=== PATIENT | male | born 1965 | race Caucasian/White ===

== ENCOUNTER 2021-01-19 12:39 | Emergency (ER) | payer SELFPAY ==
[~2021-01-19] VITALS: Ht 180.3 cm; Wt 94.3 kg
[2021-01-19] MEDS ORDERED: methylPREDNISolone SOD SUCC 125 MG/2 ML VL IV ONE (13:00)
[2021-01-19] MEDS ORDERED: cefTRIAXone 1GM/50ML D5W 50 ML IV ONE (13:00)
[2021-01-19 13:26] LABS: Basophils # (auto) 0.3 10 ^3/uL (0-0.2); Basophils % (auto) 2.6 % (0.0-2.0); Eosinophils # (auto) 0.3 10 ^3/uL (0-0.8); Eosinophils % (auto) 3.1 % (0.0-7.0); Hematocrit 43.1 % (41.0-53.0); Lymphocytes # (auto) 3.1 10 ^3/uL (0.4-5.4); Lymphocytes % (auto) 31.4 % (10.0-50.0); Mean Corpuscular Hemoglobin 30.9 pg (28.0-32.0); Mean Corpuscular Hgb Conc. 34.8 g/dL (32.0-36.0); Mean Corpuscular Volume 88.8 fL (80.0-100.0); Monocytes # (auto) 0.4 10 ^3/uL (0-1.3); Monocytes % (auto) 4.6 % (0.0-12.0); Neutrophils # (auto) 5.7 10 ^3/uL (1.6-8.6); Neutrophils % (auto) 58.3 % (37.0-80.0); Red Blood Cells 4.86 10^6/uL (4.5-5.90); Red Cell Distribution Width 14.1 % (11.8-14.3); White Blood Cell 9.8 10^3/uL (4.4-10.8)
[2021-01-19 13:43] LABS: Albumin 3.9 g/dL (3.4-5.0); Calcium 8.6 mg/dL (8.5-10.1); Potassium 4.4 mmol/L (3.5-5.1)
[2021-01-19 13:46] LABS: Bilirubin, Total 0.4 mg/dL (0.2-1.0); Total Protein 7.5 g/dL (6.4-8.2)
[2021-01-19 15:18] LABS: Urine Bacteria NONE SEEN /hpf (None Seen); Urine Blood Negative /uL (Negative); Urine Specific Gravity 1.019 (1.001-1.035); Urine WBC 1 /hpf (0 - 3)
[2021-01-19] MEDS ORDERED: amLODIPine BESYLATE 5 MG TAB PO ONE (15:30)
[2021-01-19 16:42] VITALS: BP 169/93
== END 2021-01-19 16:54 | disposition home or self-care (01) ==
LOC: ER 12:39
DX: J18.9 Pneumonia, unspecified organism (principal); I10 Essential (primary) hypertension; J45.909 Unspecified asthma, uncomplicated; F17.210 Nicotine dependence, cigarettes, uncomplicated; F10.20 Alcohol dependence, uncomplicated; Y90.9 Presence of alcohol in blood, level not specified
CPT/HCPCS: 36415; 71045; 80053; 81001; 85025; 85049; 96365; 96375; 99285; J0696; J2930; 93005

== ENCOUNTER 2022-07-24 12:14 | Inpatient (IN) | payer MEDICAID ==
[~2022-07-24] VITALS: Ht 180.3 cm; Wt 82.0 kg
[2022-07-24 12:22] VITALS: BP 147/94
[2022-07-24] MEDS ORDERED: MORPHINE SULFATE 4 MG/ML SYR/VIAL IV ONE (12:30)
[2022-07-24] MEDS ORDERED: SODIUM CHLORIDE 0.9% 1,000 ML IVB ONE (12:30)
[2022-07-24] MEDS ORDERED: ONDANSETRON HCL 4 MG/2 ML VIAL IV ONE (12:30)
[2022-07-24 13:01] LABS: Basophils # (auto) 0.1 10 ^3/uL (0-0.2); Basophils % (auto) 0.7 % (0.0-2.0); Eosinophils # (auto) 0.1 10 ^3/uL (0-0.8); Eosinophils % (auto) 0.5 % (0.0-7.0); Hematocrit 47.2 % (41.0-53.0); Hemoglobin 15.9 g/dL (13.5-17.5); Mean Corpuscular Hemoglobin 30.8 pg (28.0-32.0); Mean Corpuscular Hgb Conc. 33.7 g/dL (32.0-36.0); Mean Corpuscular Volume 91.4 fL (80.0-100.0); Monocytes # (auto) 0.6 10 ^3/uL (0-1.3); Monocytes % (auto) 4.4 % (0.0-12.0); Neutrophils # (auto) 10.7 10 ^3/uL (1.6-8.6); Neutrophils % (auto) 79.4 % (37.0-80.0); Nucleated Red Blood Cells % 0.2 %; Red Blood Cells 5.16 10^6/uL (4.5-5.90); White Blood Cell 13.5 10^3/uL (4.4-10.8)
[2022-07-24 13:18] LABS: Albumin 3.6 g/dL (3.4-5.0); Calcium 8.7 mg/dL (8.5-10.1); Magnesium 2.2 mg/dL (1.6-2.6); Potassium 3.8 mmol/L (3.5-5.1)
[2022-07-24 13:23] LABS: BUN/Creatinine Ratio 16.8; Bilirubin, Total 1.6 mg/dL (0.2-1.0); Total Protein 7.1 g/dL (6.4-8.2)
[2022-07-24] MEDS ORDERED: metroNIDAZOLE 500MG/100ML 100 ML IV ONE (13:45)
[2022-07-24 13:56] LABS: Urine Bacteria NONE SEEN /hpf (None Seen); Urine Blood Negative /uL (Negative); Urine Mucus FEW (None Seen); Urine WBC 33 /hpf (0 - 3); Urine WBC Clumps PRESENT /hpf (None Seen)
[2022-07-24] MEDS ORDERED: LOS25T PO (14:08)
[2022-07-24] MEDS ORDERED: CARV3.1240 PO (14:08)
[2022-07-24] MEDS ORDERED: HYDROcodone-ACET 5/325MG TAB PO PRN (14:15)
[2022-07-24] MEDS ORDERED: MORPHINE SULFATE INJ 2 MG/ml SYRG IV PRN ×2 (14:15)
[2022-07-24] MEDS ORDERED: metroNIDAZOLE 500 MG TAB PO SCH (14:15)
[2022-07-24] MEDS ORDERED: ACETAMINOPHEN 325 MG TAB PO PRN (14:15)
[2022-07-24] MEDS ORDERED: SODIUM CHLORIDE 0.9% 1,000 ML IV ONE (14:15)
[2022-07-24] MEDS ORDERED: NITROGLYCERIN 0.4 MG SL TAB SL PRN (14:15)
[2022-07-24 15:55] LABS: Alcohol, Urine < 3.0 mg/dL (0-10); Amphetamine Screen, Urine POSITIVE (NEGATIVE); Barbiturate Scree,Urine NEGATIVE (NEGATIVE); Benzodiazephine Screen, Urine NEGATIVE (NEGATIVE); Cannabinoid Screen, Urine POSITIVE (NEGATIVE); Cocaine Screen, Urine NEGATIVE (NEGATIVE); Opiate Scree,Urine NEGATIVE (NEGATIVE); Phencyclidine Screen, Urine NEGATIVE (NEGATIVE)
[2022-07-24] MEDS ORDERED: CARVEDILOL 3.125 MG TAB PO SCH (22:00)
[2022-07-25] MEDS ORDERED: PANTOPRAZOLE 40 MG/10 ML VIAL INJ IV SCH (10:00)
[2022-07-25] MEDS ORDERED: LOSARTAN POTASSIUM 25 MG TAB PO SCH (10:00)
[2022-07-25] MEDS ORDERED: levoFLOXacin 500MG 100 ML IV SCH (10:00)
== END 2022-07-25 01:23 | disposition left against medical advice (07) | DRG 244 ==
LOC: ER 12:18 → OVERFLOW 14:05
PROVIDERS: ADMIT Nurse Practitioner; ATTEND Nurse Practitioner
DX: K57.32 Diverticulitis of large intestine without perforation or abscess without bleeding (principal); F17.210 Nicotine dependence, cigarettes, uncomplicated; I10 Essential (primary) hypertension; F19.10 Other psychoactive substance abuse, uncomplicated; J45.909 Unspecified asthma, uncomplicated; Z86.73 Personal history of transient ischemic attack (TIA), and cerebral infarction without residual deficits; Z53.29 Procedure and treatment not carried out because of patient's decision for other reasons
CPT/HCPCS: 36415; 74176; 80053; 80307; 81001; 83690; 83735; 85025; G0378

== ENCOUNTER 2022-11-15 03:26 | Inpatient (IN) | payer MEDICAID ==
[2022-11-15] VITALS (54 sets, daily range): BP systolic 112–167; BP diastolic 68–124
[~2022-11-15] VITALS: Ht 180.3 cm; Wt 78.2 kg
[~2022-11-15 03:26] MED LIST: CARV3.1240 PO; LOS25T PO
[2022-11-15] MEDS ORDERED: IOHEXOL 350 MG/ML 100ML IJ ONE (04:10)
[2022-11-15 04:24] LABS: INR 1.12 (0.9-1.15); Partial Thromboplastin Time 24.9 sec (24.6-33.4)
[2022-11-15 04:28] LABS: Albumin 3.3 g/dL (3.4-5.0); Calcium 8.5 mg/dL (8.5-10.1); Magnesium 2.2 mg/dL (1.6-2.6); Potassium 3.9 mmol/L (3.5-5.1)
[2022-11-15 04:30] LABS: BUN/Creatinine Ratio 20.1 (10.0-20.0)
[2022-11-15 04:33] LABS: Bilirubin, Total 1.6 mg/dL (0.2-1.0); Total Protein 6.9 g/dL (6.4-8.2)
[2022-11-15 04:36] LABS: Basophils # (auto) 0.1 10 ^3/uL (0-0.2); Eosinophils # (auto) 0.1 10 ^3/uL (0-0.8); Hematocrit 42.5 % (41.0-53.0); Hemoglobin 14.4 g/dL (13.5-17.5); Lymphocytes # (auto) 1.1 10 ^3/uL (0.4-5.4); Lymphocytes % (auto) 11.8 % (10.0-50.0); Mean Corpuscular Hemoglobin 31.9 pg (28.0-32.0); Mean Corpuscular Hgb Conc. 33.9 g/dL (32.0-36.0); Mean Corpuscular Volume 94.1 fL (80.0-100.0); Monocytes # (auto) 0.3 10 ^3/uL (0-1.3); Monocytes % (auto) 3.4 % (0.0-12.0); Neutrophils # (auto) 7.4 10 ^3/uL (1.6-8.6); Neutrophils % (auto) 82.8 % (37.0-80.0); Nucleated Red Blood Cells % 0.2 %; Red Blood Cells 4.51 10^6/uL (4.5-5.90); Red Cell Distribution Width 16.3 % (11.8-14.3)
[2022-11-15] MEDS ORDERED: LORazepam 2MG/ML-1ML VIAL IV ONE ×2 (06:00→06:45)
[2022-11-15] MEDS ORDERED: ASPirin 81 mg TAB PO ONE ×2 (06:00→08:45)
[2022-11-15] MEDS ORDERED: FUROSEMIDE 40 MG/4 ML VIAL IV ONE (06:00)
[2022-11-15] MEDS ORDERED: LORazepam 2MG/ML-1ML VIAL ONE (06:44)
[2022-11-15] MEDS ORDERED: ETOMIDATE (2MG/ML) 20ML VIAL IV ONE ×2 (07:28→07:45)
[2022-11-15] MEDS ORDERED: SUCCINYLCHOLINE CHLORIDE 20 MG/ML 10ML VIAL IV ONE ×2 (07:28→07:45)
[2022-11-15] MEDS ORDERED: MIDAZOLAM DRIP 50 mg/50mL 50 ML IV ONE (07:29)
[2022-11-15] MEDS ORDERED: fentaNYL Drip 2500mCg/250mlNS 250 ML IV ONE (07:40)
[2022-11-15] MEDS: fentaNYL Drip 2500mCg/250mlNS 250 ML IV SCH (07:45)
[2022-11-15] MEDS ORDERED: MORPHINE SULFATE INJ 2 MG/ml SYRG IV PRN (08:45)
[2022-11-15] MEDS ORDERED: NITROGLYCERIN 0.4 MG SL TAB SL PRN (08:45)
[2022-11-15] MEDS ORDERED: hydrALAZINE HCL 20 MG/ML VL IV PRN (08:45)
[2022-11-15] MEDS ORDERED: ALBUTEROL SULF 2.5 MG/0.5ML(0.5%) NEB SOLN NEB PRN (09:30)
[2022-11-15] MEDS: MIDAZOLAM DRIP 50 mg/50mL 50 ML IV SCH ×4 (09:31→21:50)
[2022-11-15 09:43] LABS: Blood Alcohol < 3.0 mg/dL (0-5); Cholesterol 129 mg/dL (< 200); HDL Cholesterol 37 mg/dL (40-59); LDL Cholesterol 88 mg/dL (< 100); Triglycerides 58 mg/dL (< 150)
[2022-11-15] MEDS ORDERED: NITROGLYCERIN 0.4MG/HR TOPICAL PATCH TD ONE (09:45)
[2022-11-15] MEDS ORDERED: DEXTROSE (50%) 50ML SYRG IV PRN (09:45)
[2022-11-15] MEDS ORDERED: IPRATROPIUM BROM 0.5 MG/2.5ML INH SOL NEB SCH (10:00)
[2022-11-15] MEDS: CARVEDILOL 3.125 MG TAB PO SCH ×2 (10:00→22:47)
[2022-11-15 10:32] LABS: Amylase 60 U/L (25-115); Lipase 72 U/L (73-393)
[2022-11-15 11:37] LABS: Albumin 3.1 g/dL (3.4-5.0); Calcium 8.3 mg/dL (8.5-10.1); Potassium 4.4 mmol/L (3.5-5.1)
[2022-11-15 11:40] LABS: Urine Bacteria NONE SEEN /hpf (None Seen); Urine Blood TRACE /uL (Negative); Urine Specific Gravity 1.014 (1.001-1.035); Urine WBC 3 /hpf (0 - 3)
[2022-11-15 11:41] LABS: BUN/Creatinine Ratio 19.9 (10.0-20.0); Bilirubin, Total 1.9 mg/dL (0.2-1.0); Total Protein 5.9 g/dL (6.4-8.2)
[2022-11-15] MEDS: PANTOPRAZOLE 40 MG/10 ML VIAL INJ IV SCH (11:44)
[2022-11-15] MEDS: POTASSIUM EFFERVESENT TAB 25 MEQ NG SCH (11:45)
[2022-11-15] MEDS: ENOXAPARIN SOD 80 MG/0.8ML SYRINGE SC SCH ×2 (11:45→22:46)
[2022-11-15] MEDS: InsuLIN REG 1unit/0.01ml Soln (100units/ml) SC SCH ×3 (12:00→23:48)
[2022-11-15 12:05] LABS: Alcohol, Urine < 3.0 mg/dL (0-10); Amphetamine Screen, Urine POSITIVE (NEGATIVE); Barbiturate Scree,Urine NEGATIVE (NEGATIVE); Benzodiazephine Screen, Urine POSITIVE (NEGATIVE); Cannabinoid Screen, Urine POSITIVE (NEGATIVE); Cocaine Screen, Urine NEGATIVE (NEGATIVE); Opiate Scree,Urine NEGATIVE (NEGATIVE); Phencyclidine Screen, Urine NEGATIVE (NEGATIVE)
[2022-11-15] MEDS: ACCU-CHEK COMFORT CURVE STRIP VI SCH ×3 (14:10→23:48)
[2022-11-15] MEDS: FUROSEMIDE 40 MG/4 ML VIAL IV SCH (17:46)
[2022-11-15] MEDS: ALBUTEROL SULF 2.5 MG/0.5ML(0.5%) NEB SOLN NEB SCH (18:19)
[2022-11-15] MEDS: IPRATROPIUM BROM 0.5 MG/2.5ML INH SOL NEB SCH (18:19)
[2022-11-15] MEDS ORDERED: ATOR-47 (19:42)
[2022-11-15] MEDS ORDERED: CLOP75TA70 PO (19:42)
[2022-11-15 23:36] LABS: BUN/Creatinine Ratio 16.9 (10.0-20.0); Calcium 9.1 mg/dL (8.5-10.1); Magnesium 1.9 mg/dL (1.6-2.6); Potassium 3.6 mmol/L (3.5-5.1)
[2022-11-16] VITALS (105 sets, daily range): BP systolic 113–168; BP diastolic 76–114
[2022-11-16] MEDS: IPRATROPIUM BROM 0.5 MG/2.5ML INH SOL NEB SCH ×5 (00:14→23:30)
[2022-11-16] MEDS: ALBUTEROL SULF 2.5 MG/0.5ML(0.5%) NEB SOLN NEB SCH ×5 (00:14→23:30)
[2022-11-16] MEDS: MIDAZOLAM DRIP 50 mg/50mL 50 ML IV SCH ×4 (00:44→12:03)
[2022-11-16] MEDS: ACETAMINOPHEN 650 mg PER 20.3 mL UD PO PRN (01:56)
[2022-11-16] MEDS: fentaNYL Drip 2500mCg/250mlNS 250 ML IV SCH (03:44)
[2022-11-16 04:01] LABS: Urine Bacteria FEW /hpf (None Seen); Urine Blood 1+ /uL (Negative); Urine Hyaline Cast FEW /lpf (0 - 2); Urine Specific Gravity 1.013 (1.001-1.035); Urine WBC 2 /hpf (0 - 3)
[2022-11-16 04:41] LABS: Basophils # (auto) 0.1 10 ^3/uL (0-0.2); Eosinophils # (auto) 0.1 10 ^3/uL (0-0.8); Eosinophils % (auto) 0.4 % (0.0-7.0); Hematocrit 47.3 % (41.0-53.0); Hemoglobin 15.7 g/dL (13.5-17.5); Lymphocytes # (auto) 0.6 10 ^3/uL (0.4-5.4); Lymphocytes % (auto) 5.6 % (10.0-50.0); Mean Corpuscular Hemoglobin 31.1 pg (28.0-32.0); Mean Corpuscular Hgb Conc. 33.1 g/dL (32.0-36.0); Monocytes # (auto) 0.7 10 ^3/uL (0-1.3); Monocytes % (auto) 6.3 % (0.0-12.0); Neutrophils # (auto) 9.8 10 ^3/uL (1.6-8.6); Neutrophils % (auto) 86.7 % (37.0-80.0); Nucleated Red Blood Cells % 0.1 %; Red Blood Cells 5.03 10^6/uL (4.5-5.90); Red Cell Distribution Width 16.3 % (11.8-14.3); White Blood Cell 11.3 10^3/uL (4.4-10.8)
[2022-11-16 04:57] LABS: Albumin 3.1 g/dL (3.4-5.0); BUN/Creatinine Ratio 14.1 (10.0-20.0); Calcium 8.9 mg/dL (8.5-10.1); Potassium 3.8 mmol/L (3.5-5.1)
[2022-11-16 05:00] LABS: Bilirubin, Total 2.4 mg/dL (0.2-1.0); Total Protein 6.5 g/dL (6.4-8.2)
[2022-11-16] MEDS: InsuLIN REG 1unit/0.01ml Soln (100units/ml) SC SCH ×3 (06:00→18:00)
[2022-11-16] MEDS: ACCU-CHEK COMFORT CURVE STRIP VI SCH ×3 (06:20→18:00)
[2022-11-16] MEDS: FUROSEMIDE 40 MG/4 ML VIAL IV SCH (06:28)
[2022-11-16] MEDS ORDERED: ACETYLCYSTEINE ORAL for CIN 20%(200MG/ML) 4ML PO SCH (10:00)
[2022-11-16] MEDS ORDERED: ACETYLCYSTEINE 20%(200MG/ML) SOLN 30ML PO SCH (10:00)
[2022-11-16] MEDS: THIAMINE 100mg/ml INJ (200mg/2ml VIAL) IV SCH (10:44)
[2022-11-16] MEDS: ENOXAPARIN SOD 80 MG/0.8ML SYRINGE SC SCH ×2 (10:44→21:39)
[2022-11-16] MEDS: ASPirin 81 mg TAB PO SCH (10:45)
[2022-11-16] MEDS: PANTOPRAZOLE 40 MG/10 ML VIAL INJ IV SCH (10:45)
[2022-11-16] MEDS: POTASSIUM EFFERVESENT TAB 25 MEQ NG SCH (10:45)
[2022-11-16] MEDS: CARVEDILOL 3.125 MG TAB PO SCH ×2 (10:46→21:39)
[2022-11-16] MEDS: FOLIC ACID 1 MG in D5W 5% 50 ML INJ SCH (12:15)
[2022-11-16] MEDS ORDERED: ALBUMIN 25% 50 ML IV ONE (14:15)
[2022-11-16] MEDS: ACETYLCYSTEINE 20%(200MG/ML) SOLN 30ML PO SCH (21:40)
[2022-11-17] VITALS (104 sets, daily range): BP systolic 109–169; BP diastolic 64–116
[2022-11-17] MEDS: ACCU-CHEK COMFORT CURVE STRIP VI SCH ×5 (00:24→23:31)
[2022-11-17 04:57] LABS: Basophils # (auto) 0 10 ^3/uL (0-0.2); Basophils % (auto) 0.3 % (0.0-2.0); Eosinophils # (auto) 0 10 ^3/uL (0-0.8); Eosinophils % (auto) 0.1 % (0.0-7.0); Hematocrit 48.9 % (41.0-53.0); Hemoglobin 16.3 g/dL (13.5-17.5); Lymphocytes # (auto) 0.7 10 ^3/uL (0.4-5.4); Lymphocytes % (auto) 5.3 % (10.0-50.0); Mean Corpuscular Hgb Conc. 33.3 g/dL (32.0-36.0); Mean Corpuscular Volume 93.2 fL (80.0-100.0); Monocytes % (auto) 7.2 % (0.0-12.0); Neutrophils % (auto) 87.1 % (37.0-80.0); Nucleated Red Blood Cells % 0.3 %; Red Blood Cells 5.24 10^6/uL (4.5-5.90); Red Cell Distribution Width 16.2 % (11.8-14.3); White Blood Cell 13.8 10^3/uL (4.4-10.8)
[2022-11-17 05:20] LABS: Albumin 2.8 g/dL (3.4-5.0); BUN/Creatinine Ratio 26.5 (10.0-20.0)
[2022-11-17 05:23] LABS: Bilirubin, Total 2.3 mg/dL (0.2-1.0); Total Protein 6.5 g/dL (6.4-8.2)
[2022-11-17] MEDS: InsuLIN REG 1unit/0.01ml Soln (100units/ml) SC SCH ×5 (06:00→23:31)
[2022-11-17] MEDS: IPRATROPIUM BROM 0.5 MG/2.5ML INH SOL NEB SCH ×4 (06:11→23:10)
[2022-11-17] MEDS: ALBUTEROL SULF 2.5 MG/0.5ML(0.5%) NEB SOLN NEB SCH ×4 (06:11→23:10)
[2022-11-17] MEDS: fentaNYL Drip 2500mCg/250mlNS 250 ML IV SCH (07:45)
[2022-11-17] MEDS: ASPirin 81 mg TAB PO SCH (10:00)
[2022-11-17] MEDS: ENOXAPARIN SOD 80 MG/0.8ML SYRINGE SC SCH ×2 (10:00→21:55)
[2022-11-17] MEDS ORDERED: cefTRIAXone 1GM/50ML D5W 50 ML IV ONE (10:30)
[2022-11-17] MEDS: PANTOPRAZOLE 40 MG/10 ML VIAL INJ IV SCH (11:18)
[2022-11-17] MEDS: FUROSEMIDE 40 MG/4 ML VIAL IV SCH (11:19)
[2022-11-17] MEDS: THIAMINE 100mg/ml INJ (200mg/2ml VIAL) IV SCH (11:19)
[2022-11-17] MEDS: CARVEDILOL 3.125 MG TAB PO SCH ×2 (11:22→21:55)
[2022-11-17] MEDS: ACETYLCYSTEINE 20%(200MG/ML) SOLN 30ML PO SCH ×2 (11:23→22:07)
[2022-11-17] MEDS: POTASSIUM EFFERVESENT TAB 25 MEQ NG SCH (11:23)
[2022-11-17] MEDS: FOLIC ACID 1 MG in D5W 5% 50 ML INJ SCH (12:00)
[2022-11-17] MEDS: LACTULOSE 20Gm/30ML SOLN PO SCH (21:55)
[2022-11-18] VITALS (106 sets, daily range): BP systolic 119–174; BP diastolic 71–98
[2022-11-18] MEDS: fentaNYL Drip 2500mCg/250mlNS 250 ML IV SCH (01:04)
[2022-11-18 05:10] LABS: Basophils # (auto) 0 10 ^3/uL (0-0.2); Basophils % (auto) 0.6 % (0.0-2.0); Eosinophils # (auto) 0.1 10 ^3/uL (0-0.8); Eosinophils % (auto) 1.1 % (0.0-7.0); Hematocrit 26.5 % (41.0-53.0); Hemoglobin 8.8 g/dL (13.5-17.5); Lymphocytes # (auto) 1.1 10 ^3/uL (0.4-5.4); Lymphocytes % (auto) 12.9 % (10.0-50.0); Mean Corpuscular Hgb Conc. 33.1 g/dL (32.0-36.0); Mean Corpuscular Volume 90.7 fL (80.0-100.0); Monocytes # (auto) 1.2 10 ^3/uL (0-1.3); Monocytes % (auto) 14.4 % (0.0-12.0); Neutrophils # (auto) 5.8 10 ^3/uL (1.6-8.6); Nucleated Red Blood Cells % 0.2 %; Red Blood Cells 2.93 10^6/uL (4.5-5.90); White Blood Cell 8.2 10^3/uL (4.4-10.8)
[2022-11-18 05:14] LABS: Potassium 4.5 mmol/L (3.5-5.1)
[2022-11-18 05:15] LABS: Red Cell Distribution Width 21.2 % (11.8-14.3)
[2022-11-18 05:35] LABS: Albumin 1.5 g/dL (3.4-5.0); BUN/Creatinine Ratio 148.5 (10.0-20.0); Bilirubin, Total 0.4 mg/dL (0.2-1.0); Calcium 8.5 mg/dL (8.5-10.1); Total Protein 5.3 g/dL (6.4-8.2)
[2022-11-18] MEDS: ACCU-CHEK COMFORT CURVE STRIP VI SCH ×3 (05:42→18:28)
[2022-11-18] MEDS: InsuLIN REG 1unit/0.01ml Soln (100units/ml) SC SCH ×3 (05:42→18:00)
[2022-11-18] MEDS: ALBUTEROL SULF 2.5 MG/0.5ML(0.5%) NEB SOLN NEB SCH ×4 (06:09→23:57)
[2022-11-18] MEDS: IPRATROPIUM BROM 0.5 MG/2.5ML INH SOL NEB SCH ×4 (06:10→23:57)
[2022-11-18] MEDS: MIDAZOLAM DRIP 50 mg/50mL 50 ML IV SCH (07:45)
[2022-11-18] MEDS: cefTRIAXone 1GM/50ML D5W 50 ML IV SCH (08:29)
[2022-11-18] MEDS: ENOXAPARIN SOD 80 MG/0.8ML SYRINGE SC SCH ×2 (08:30→22:11)
[2022-11-18] MEDS: ASPirin 81 mg TAB PO SCH (08:30)
[2022-11-18] MEDS: FUROSEMIDE 40 MG/4 ML VIAL IV SCH (08:30)
[2022-11-18] MEDS: PANTOPRAZOLE 40 MG/10 ML VIAL INJ IV SCH (08:30)
[2022-11-18] MEDS: LACTULOSE 20Gm/30ML SOLN PO SCH ×2 (08:30→22:10)
[2022-11-18] MEDS: CARVEDILOL 3.125 MG TAB PO SCH ×2 (08:30→22:11)
[2022-11-18] MEDS: THIAMINE 100mg/ml INJ (200mg/2ml VIAL) IV SCH (08:31)
[2022-11-18] MEDS: POTASSIUM EFFERVESENT TAB 25 MEQ NG SCH (08:31)
[2022-11-18] MEDS: FOLIC ACID 1 MG in D5W 5% 50 ML INJ SCH (12:12)
[2022-11-19] VITALS (60 sets, daily range): BP systolic 101–144; BP diastolic 55–81
[2022-11-19] MEDS: ACCU-CHEK COMFORT CURVE STRIP VI SCH ×5 (00:08→23:56)
[2022-11-19] MEDS: InsuLIN REG 1unit/0.01ml Soln (100units/ml) SC SCH ×5 (00:09→23:56)
[2022-11-19 06:04] LABS: Basophils # (auto) 0.1 10 ^3/uL (0-0.2); Basophils % (auto) 0.8 % (0.0-2.0); Eosinophils # (auto) 0.1 10 ^3/uL (0-0.8); Hematocrit 44.2 % (41.0-53.0); Hemoglobin 15.1 g/dL (13.5-17.5); Lymphocytes # (auto) 0.8 10 ^3/uL (0.4-5.4); Lymphocytes % (auto) 8.2 % (10.0-50.0); Mean Corpuscular Hemoglobin 31.7 pg (28.0-32.0); Mean Corpuscular Hgb Conc. 34.1 g/dL (32.0-36.0); Mean Corpuscular Volume 92.9 fL (80.0-100.0); Monocytes # (auto) 0.9 10 ^3/uL (0-1.3); Monocytes % (auto) 9.8 % (0.0-12.0); Neutrophils # (auto) 7.6 10 ^3/uL (1.6-8.6); Neutrophils % (auto) 80.2 % (37.0-80.0); Nucleated Red Blood Cells % 0.2 %; Red Blood Cells 4.76 10^6/uL (4.5-5.90); Red Cell Distribution Width 15.9 % (11.8-14.3); White Blood Cell 9.5 10^3/uL (4.4-10.8)
[2022-11-19 06:14] LABS: Calcium 9.5 mg/dL (8.5-10.1); Potassium 4.1 mmol/L (3.5-5.1)
[2022-11-19 06:17] LABS: BUN/Creatinine Ratio 29.8 (10.0-20.0)
[2022-11-19] MEDS: ALBUTEROL SULF 2.5 MG/0.5ML(0.5%) NEB SOLN NEB SCH ×3 (06:32→18:55)
[2022-11-19] MEDS: IPRATROPIUM BROM 0.5 MG/2.5ML INH SOL NEB SCH ×3 (06:32→18:55)
[2022-11-19] MEDS: MIDAZOLAM DRIP 50 mg/50mL 50 ML IV SCH (07:45)
[2022-11-19] MEDS: fentaNYL Drip 2500mCg/250mlNS 250 ML IV SCH (07:45)
[2022-11-19] MEDS: CARVEDILOL 3.125 MG TAB PO SCH ×2 (09:58→22:17)
[2022-11-19] MEDS: LACTULOSE 20Gm/30ML SOLN PO SCH ×2 (09:58→22:17)
[2022-11-19] MEDS: ASPirin 81 mg TAB PO SCH (09:58)
[2022-11-19] MEDS: PANTOPRAZOLE 40 MG/10 ML VIAL INJ IV SCH (10:04)
[2022-11-19] MEDS: THIAMINE 100mg/ml INJ (200mg/2ml VIAL) IV SCH (10:04)
[2022-11-19] MEDS: cefTRIAXone 1GM/50ML D5W 50 ML IV SCH (10:04)
[2022-11-19] MEDS: ENOXAPARIN SOD 80 MG/0.8ML SYRINGE SC SCH ×2 (10:04→22:17)
[2022-11-19] MEDS: FOLIC ACID 1 MG in D5W 5% 50 ML INJ SCH (11:40)
[2022-11-19] MEDS: ACETAMINOPHEN 650 mg PER 20.3 mL UD PO PRN (20:48)
[2022-11-20] VITALS (12 sets, daily range): BP systolic 117–160; BP diastolic 53–95
[2022-11-20] MEDS: IPRATROPIUM BROM 0.5 MG/2.5ML INH SOL NEB SCH ×4 (00:35→12:45)
[2022-11-20] MEDS: ALBUTEROL SULF 2.5 MG/0.5ML(0.5%) NEB SOLN NEB SCH ×4 (00:35→12:45)
[2022-11-20 05:25] LABS: Basophils # (auto) 0.1 10 ^3/uL (0-0.2); Eosinophils # (auto) 0.3 10 ^3/uL (0-0.8); Eosinophils % (auto) 3.3 % (0.0-7.0); Hematocrit 39.1 % (41.0-53.0); Hemoglobin 13.1 g/dL (13.5-17.5); Lymphocytes # (auto) 1.2 10 ^3/uL (0.4-5.4); Lymphocytes % (auto) 13.3 % (10.0-50.0); Mean Corpuscular Hemoglobin 30.7 pg (28.0-32.0); Mean Corpuscular Hgb Conc. 33.5 g/dL (32.0-36.0); Mean Corpuscular Volume 91.5 fL (80.0-100.0); Monocytes % (auto) 11.5 % (0.0-12.0); Neutrophils # (auto) 6.2 10 ^3/uL (1.6-8.6); Neutrophils % (auto) 70.9 % (37.0-80.0); Red Blood Cells 4.27 10^6/uL (4.5-5.90); Red Cell Distribution Width 15.2 % (11.8-14.3); White Blood Cell 8.7 10^3/uL (4.4-10.8)
[2022-11-20 05:45] LABS: BUN/Creatinine Ratio 28.9 (10.0-20.0); Calcium 8.3 mg/dL (8.5-10.1); Potassium 3.4 mmol/L (3.5-5.1)
[2022-11-20] MEDS: InsuLIN REG 1unit/0.01ml Soln (100units/ml) SC SCH ×2 (06:00→12:00)
[2022-11-20] MEDS: ACCU-CHEK COMFORT CURVE STRIP VI SCH ×2 (06:42→12:17)
[2022-11-20] MEDS: PANTOPRAZOLE 40 MG/10 ML VIAL INJ IV SCH (07:42)
[2022-11-20] MEDS: THIAMINE 100mg/ml INJ (200mg/2ml VIAL) IV SCH (07:42)
[2022-11-20] MEDS: cefTRIAXone 1GM/50ML D5W 50 ML IV SCH (07:42)
[2022-11-20] MEDS: ENOXAPARIN SOD 80 MG/0.8ML SYRINGE SC SCH (07:43)
[2022-11-20] MEDS: FOLIC ACID 1 MG in D5W 5% 50 ML INJ SCH (07:43)
[2022-11-20] MEDS: ASPirin 81 mg TAB PO SCH (07:43)
[2022-11-20] MEDS: CARVEDILOL 3.125 MG TAB PO SCH (07:43)
[2022-11-20] MEDS: LACTULOSE 20Gm/30ML SOLN PO SCH (09:24)
[2022-11-20] MEDS ORDERED: POTASSIUM CHL 20MEQ/100ML 100 ML IV ONE (12:45)
== END 2022-11-20 13:00 | disposition left against medical advice (07) | DRG 190 ==
LOC: EDBD 03:26 → ER 03:26 → TELE 09:15 → ICU CENTRL 12:10 → TELE-WESTW 11-20 10:39
PROVIDERS: ADMIT Registered Nurse; ATTEND Internal Medicine Pulmonary Disease
PROC: 5A1955Z Respiratory Ventilation, Greater than 96 Consecutive Hours (ICD-10-PCS; principal; 2022-11-15)
PROC: 02HV33Z Insertion of Infusion Device into Superior Vena Cava, Percutaneous Approach (ICD-10-PCS; 2022-11-15)
PROC: 0BH17EZ Insertion of Endotracheal Airway into Trachea, Via Natural or Artificial Opening (ICD-10-PCS; 2022-11-15)
PROC: 5A09357 Assistance with Respiratory Ventilation, Less than 24 Consecutive Hours, Continuous Positive Airway Pressure (ICD-10-PCS; 2022-11-15)
DX: I21.4 Non-ST elevation (NSTEMI) myocardial infarction (principal); J96.01 Acute respiratory failure with hypoxia; J18.9 Pneumonia, unspecified organism; I50.43 Acute on chronic combined systolic (congestive) and diastolic (congestive) heart failure; G93.41 Metabolic encephalopathy; G93.1 Anoxic brain damage, not elsewhere classified; N17.9 Acute kidney failure, unspecified; I13.0 Hypertensive heart and chronic kidney disease with heart failure and stage 1 through stage 4 chronic kidney disease, or unspecified chronic kidney disease; F10.20 Alcohol dependence, uncomplicated; F15.10 Other stimulant abuse, uncomplicated; F41.9 Anxiety disorder, unspecified; H57.02 Anisocoria; I70.0 Atherosclerosis of aorta; Z53.29 Procedure and treatment not carried out because of patient's decision for other reasons; J45.909 Unspecified asthma, uncomplicated; N18.32 Chronic kidney disease, stage 3b; I25.10 Atherosclerotic heart disease of native coronary artery without angina pectoris; I34.0 Nonrheumatic mitral (valve) insufficiency; F17.210 Nicotine dependence, cigarettes, uncomplicated; Y90.9 Presence of alcohol in blood, level not specified; Q53.10 Unspecified undescended testicle, unilateral; I25.2 Old myocardial infarction; Z79.899 Other long term (current) drug therapy; Z86.73 Personal history of transient ischemic attack (TIA), and cerebral infarction without residual deficits
CPT/HCPCS: 31500; 36415; 36600; 70450; 71045; 71260; 74177; 80048; 80053; 80061; 80307; 80320; 81001; 82140; 82150; 82805; 82962; 83036; 83690; 83735; 83880; 84443; 84484; 85025; 85610; 85730; 87040; 87070; 87077; 87081; 87086; 87186; 87205; 93005; 93306; 93886; 93925; 93970; 94002; 94003; 94640; 94660; 96365; 96375; 96376; 97110; 97116; 97163; 97530; 99291; C9113; G0378; J0330; J0696; J2250; J7060